=== PATIENT | female | born 1980 | race Caucasian/White ===

== ENCOUNTER 2018-08-04 05:15 | Inpatient (IN) | payer OTHER ==
[~2018-08-04] VITALS: Ht 167.6 cm; Wt 72.7 kg
[2018-08-04] MEDS ORDERED: PREN-99 PO (06:04)
[2018-08-04 06:05] VITALS: Ht 167.6 cm; Wt 72.7 kg
[2018-08-04] MEDS: LACTATED RINGER'S 1,000 ML IV SCH ×2 (06:15→07:35)
[2018-08-04] MEDS ORDERED: METHYLERGONOVINE 0.2 MG INJ IM PRN ×3 (06:30→11:00)
[2018-08-04] MEDS ORDERED: OXYTOCIN 30 UNITS/LR 500 ML IV PRN ×3 (06:30→11:00)
[2018-08-04] MEDS ORDERED: MISOPROSTOL 200 MCG TAB PR PRN ×3 (06:30→11:00)
[2018-08-04] MEDS ORDERED: CEFAZOLIN 2 GM/50 ML (PMX) 50 ML IVPB SCH (06:30)
[2018-08-04] MEDS ORDERED: OXYTOCIN 30 UNITS/LR 500 ML IV SCH ×2 (06:30→09:47)
[2018-08-04] MEDS ORDERED: CARBOPROST 250 MCG INJ IM PRN ×3 (06:30→11:00)
[2018-08-04] MEDS ORDERED: OXYTOCIN 10 UNIT INJ ONE ×2 (07:00→07:56)
--- NOTE | 2018-08-04 07:39 | PREAC ---
Date/Time of Note Date/Time of Note DATE: 08/04/18 TIME: 07:37 Anesthesia Eval and Record Evaluation Time Pre-Procedure Interview DATE: 08/04/18 TIME: 07:37 Age 37 Sex female NPO: 8 hrs Preoperative diagnosis IUP Planned procedure Repeat C/section Past Medical History Past Medical History: Includes Cardio: HTN, Dyslipidemia GI: Obesity Surgery & Anesthesia Issues No known issue Meds Anticoagulation: No Beta Jesus within 24 hr: No Reason Beta Jesus not given: Pt. not on B-Jesus Reported Medications Vit #76/Iron,Carb/FA (Pnv 29-1 Tablet) 1 Each Tablet, 1 EACH PO, TAB 08/04/18 Current Medications Lactated Ringer's 1,000 ml @ 125 mls/hr Q8H IV Last administered on 08/04/18at 07:35; Admin Dose 125 MLS/HR; Start 08/04/18 at 06:07 Cefazolin Sodium/ Dextrose 50 ml @ 100 mls/hr ONCE IVPB ; Start 08/04/18 at 06:30 Oxytocin/Lactated Ringer's 500 ml @ 125 mls/hr POST IV ; Start 08/04/18 at 06:30 Oxytocin/Lactated Ringer's 500 ml @ 0 mls/hr ONCE PRN IV .VAGINAL BLEEDING; Start 08/04/18 at 06:30 Methylergonovine Maleate (Methergine) 0.2 mg ONCE PRN IM .VAGINAL BLEEDING; Start 08/04/18 at 06:30 Carboprost Tromethamine (Hemabate) 250 mcg ONCE PRN IM .VAGINAL BLEEDING; Start 08/04/18 at 06:30 Misoprostol (Cytotec) 1,000 mcg ONCE PRN PA .VAGINAL BLEEDING; Start 08/04/18 at 06:30 Meds reviewed: Yes Allergies Coded Allergies: No Known Allergy (Unverified , 08/04/18) Allergies Reviewed: Yes Labs/Studies Labs Reviewed: Reviewed by anesthesiologist Result Diagram: 08/04/1860408/04/18604 Laboratory Tests 08/04/18 06:05 Blood Bank Test 08/04/18 06:05 Antibody Screen NEGATIVE Blood Type O POSITIVE Rh Immune Globulin Candidate NO test: Positive Studies: ECG Pre-procedure Exam Last vitals BP:142/67, P:78, Spo2:100%, T:99,2 Airway: Adequate mouth opening, Adequate thyromental dist Mallampati: Mallampati II Teeth: Normal Lung: Normal Heart: Normal ASA Physical Status ASA physical status: 2 Emergency: None Planned Anesthetic Neuraxial: Spinal Planned Pain Management Sub-arachniod narcotics, Parenteral pain med Pre-operative Attestations Prior to commencing anesthesia and surgery, the patient was re-evaluated, there was verification of: *The patient's identity *The results of appropriate recent lab work and preoperative vital signs *The above evaluation not changing prior to induction *Anesthetic plan, risk benefits, alternative and complications discussed with patient/family; questions answered; patient/family understands, accepts and wishes to proceed. BECCA POLK MD August 04, 2018 07:39
[2018-08-04] MEDS ORDERED: morphine SULFATE/PF (10 MG/10 ML) INJ ONE ×2 (07:56→08:28)
[2018-08-04] MEDS ORDERED: ONDANSETRON 4 MG INJ ONE (07:56)
[2018-08-04] MEDS ORDERED: NALOXONE (0.4 MG/ML) INJ IV PRN (09:00)
[2018-08-04] MEDS ORDERED: KETOROLAC 30 MG INJ IV PRN (09:00)
[2018-08-04] MEDS ORDERED: morphine 2 MG INJ IV PRN (09:00)
[2018-08-04] MEDS ORDERED: ONDANSETRON 4 MG INJ IV PRN ×2 (09:00→11:00)
[2018-08-04] MEDS ORDERED: DIPHENHYDRAMINE 50 MG INJ IV PRN ×2 (09:00→11:00)
[2018-08-04] MEDS ORDERED: FENTAnyl 50 MCG/ML VIAL ONE (09:10)
--- NOTE | 2018-08-04 09:37 | PAC ---
Date/Time of Note Date/Time of Note DATE: 08/04/18 TIME: 09:34 Post-Anesthesia Notes Post-Anesthesia Note Activity: WNL Respiratory function: WNL Cardiovascular function: WNL Mental status: Baseline Pain reasonably controlled: Yes Hydration appropriate: Yes Nausea/Vomiting absent: Yes Comments BP:118/78, P:64, Spo2:100%, T:98,8 BECCA POLK MD August 04, 2018 09:37
[2018-08-04] MEDS ORDERED: LACTATED RINGER'S 1,000 ML IV SCH (09:47)
[2018-08-04] MEDS ORDERED: METHYLERGONOVINE 0.2 MG TAB PO PRN (10:00)
[2018-08-04] MEDS ORDERED: MAGNESIUM SULFATE 4 GM/100 ML 100 ML IVPB ONE ×3 (10:00→11:00)
[2018-08-04] MEDS ORDERED: HYDROCODONE/APAP (5/325) TAB PO PRN ×3 (10:00→11:00)
[2018-08-04] MEDS ORDERED: LANOLIN HPA 1 PKT TOP PRN ×2 (10:00→11:00)
[2018-08-04] MEDS ORDERED: NA PHOSPHATE/BIPHOS 133 ML ENEMA PR PRN (10:00)
--- NOTE | 2018-08-04 10:05 | SIPON ---
Date/Time of Note Date/Time of Note DATE: 08/04/18 TIME: 10:03 Operative Report Preoperative Diagnosis Term Previous x3 Large umbilical hernia Multiparity Postoperative Diagnosis Same plus extensive adhesions Operation/Procedure Performed Repeat low segment transverse section lysis of adhesions bilateral fimbriectomy. Repair of umbilical hernia Surgeon see signature line office clerk assistant Dr. Olvera Anesthesia: spinal Estimated blood loss: other Transfusion Required none Specimen Placenta and tubes Grafts/Implants none Complications none GLADYS EVANS MD August 04, 2018 10:05
--- NOTE | 2018-08-04 10:47 | LDN ---
Date/Time of Note Date/Time of Note DATE: 08/04/18 TIME: 10:44 Delivery Summary 37 years old female multigravida 1 week postdates admitted for induction of labor Spontaneous vaginal delivery baby boy 9 No lacerations No bleeding Epidural anesthesia Weeks of Gestation 41 weeks Placenta Delivered: Spontaneously Meconium: none Episiotomy: No Sponge & Needle done & correct: Yes All needle counts correct: Yes Any foreign bodies felt in the: No Infant Delivery Information Sex Sex: male Apgars 1 Minute: 9 5 Minute: 9 Suctioning Nose & mouth suctioned at lev: Yes Delee suction performed: No Umbilical Cord Umbilical cord with: 3 Vessels Cord Blood was obtained: Yes Mother & Baby Disposition Disposition Mom & Baby to Maternity; Good: Yes GLADYS EVANS MD August 04, 2018 10:47
[2018-08-04] MEDS: LACTATED RINGER'S 1,000 ML IV* SCH ×3 (10:48→20:41)
[2018-08-04] MEDS ORDERED: SENNA/DOCUSATE NA (8.6MG/50MG) TAB PO PRN (11:00)
[2018-08-04] MEDS ORDERED: DIPHENHYDRAMINE 25 MG CAP PO PRN (11:00)
[2018-08-04] MEDS ORDERED: ACETAMINOPHEN 325 MG TAB PO PRN ×2 (11:00)
[2018-08-04] MEDS ORDERED: DIBUCAINE 1% 30 GM OINT TOP PRN (11:00)
[2018-08-04] MEDS ORDERED: ONDANSETRON 4 MG TAB PO PRN (11:00)
[2018-08-04] MEDS: IBUPROFEN 800 MG TAB PO SCH ×2 (12:00→18:00)
[2018-08-04] MEDS: MAGNESIUM SULFATE 20 GM/500 ML 500 ML IV SCH ×2 (12:29→20:43)
[2018-08-04] MEDS: KETOROLAC 30 MG INJ IV SCH ×2 (12:32→18:36)
[2018-08-04] MEDS ORDERED: IBUPROFEN 800 MG TAB PO SCH (14:00)
--- NOTE | 2018-08-04 14:39 | OPR ---
DATE OF OPERATION: 08/04/2018 PROCEDURE: Repeat low segment transverse section, bilateral fimbriectomy, lysis of extensiv e adhesions, repair of umbilical hernia. SURGEON: Gladys Denise MD SECURITY TEST ENGINEER: Adams Olvera MD ANESTHESIOLOGIST: Jet Lee MD ANESTHESIA: Spinal. DESCRIPTION OF PROCEDURE: The patient was given a spinal anesthesia, placed in the supine position. The abdomen was prepped and draped and a Bronson catheter was placed in the bladder. A transverse inc ision was made suprapubically over the previous old scar of about 10 cm in length. The abdominal cav ity was reached and we found extensive omental adhesions and uterine adhesions to the anterior abdomi nal wall. We started dissecting and clearing the omental adhesions with cutting clamped, cut and tie d with #2-0 Vicryl. After the omental adhesions were lysed, the uterine adhesion to the abdominal wa ll was lysed and the bladder flap was made. The uterus was opened in the segment area and the amniot ic fluid was clear. The cord was around the baby's head and neck and we passed it through the head. We delivered a baby girl, 9. The cord was clamped and cut. The placenta was removed. The ut erus was cleaned out. The cervix was opened with ring forceps and the uterus was closed in 2 layers with 0 PDS looped suture, imbedding the first line of suture. At this time, more adhesions were lyse d and also an ovarian cyst from the left side was also burned, cut and couple of stitches were placed on it. The more extensive lysis of adhesions were done and at this time, the fimbriated end of the tube was clamped at the mesosalpinx and going up almost 3/4 of the tube. This portion of the tube wa s excised and closed with a 2-0 Vicryl [id number] suture. The same thing was done on the other side. The abdominal cavity was cleaned out and we assessed bleeding that was controlled. Three stit ches with #1 Prolene were placed at the level of the umbilical area internally where large umbilical hernia was seen. Three large stitches were placed on the fascia and were done individually interrupt ed. The area of the fascia was tightly closed. The stitches were permanent. The ventral hernia was apparently fixed. The abdominal cavity was closed with a 2-0 Vicryl suture for peritoneum. A piece of Surgicel was left on the area to control the venous bleeding. The fascia was closed with 0 PDS l ooped suture, 2-0 Vicryl for the subcutaneous tissue, 3-0 Monocryl subcuticular to the skin. Dermabo nd and Steri-Strips were applied. The patient tolerated the procedure well and left the OR awake and stable. Sponge counts and instrument counts were correct. Intravenous antibiotics were given for p rophylaxis. Blood loss was about 600 mL and the urine was clear at the end of the procedure. Dictated By: GLADYS FERNANDO/PATRICIA Conf#: [id number] DID#: [id number]
[2018-08-04] MEDS: CEFAZOLIN 2 GM/50 ML (PMX) 50 ML IVPB SCH ×2 (15:04→23:15)
[2018-08-04 17:10] VITALS: BP 122/82; PULSE 62; RESP 18
[2018-08-04 18:10] VITALS: BP 121/88; PULSE 62
[2018-08-04 20:00] VITALS: BP 112/77; PULSE 62; RESP 18
[2018-08-04 21:00] VITALS: BP 115/82; PULSE 64; RESP 18
[2018-08-04] MEDS: SENNA/DOCUSATE NA (8.6MG/50MG) TAB PO SCH (21:00)
[2018-08-04] MEDS: LABETALOL 100 MG TAB PO SCH (21:00)
[2018-08-04 22:00] VITALS: BP 113/71; PULSE 78; RESP 18
[2018-08-04 23:00] VITALS: BP 109/69; PULSE 75; RESP 17
[2018-08-05] VITALS (12 sets, daily range): BP systolic 101–127; BP diastolic 59–82; PULSE 69–91; RESP 17–18
[2018-08-05] MEDS: KETOROLAC 30 MG INJ IV SCH ×2 (00:06→06:36)
[2018-08-05] MEDS: CEFAZOLIN 2 GM/50 ML (PMX) 50 ML IVPB SCH (06:36)
[2018-08-05] MEDS: LABETALOL 100 MG TAB PO SCH ×2 (09:00→21:00)
[2018-08-05] MEDS: SENNA/DOCUSATE NA (8.6MG/50MG) TAB PO SCH ×2 (09:20→21:39)
[2018-08-05] MEDS: IBUPROFEN 800 MG TAB PO SCH ×3 (12:04→23:51)
--- NOTE | 2018-08-05 13:57 | PN ---
Date/Time of Note Date/Time of Note DATE: 08/05/18 TIME: 13:56 Assessment/Plan Lines/Catheters IV Catheter Type (from Nrsg): Peripheral IV Subjective 24 Hr Interval Summary Day 1 post Doing well Ambulating already Incision dry Uterus is contracted Lochia normal Constitutional: no complaints Feeding: advancing diet Pain Control: mild Detailed Summary Eyes: no complaints ENT: no complaints Respiratory: no complaints Cardiovascular: no complaints Gastrointestinal: no complaints Genitourinary: no complaints Musculoskeletal: no complaints Skin: no complaints Neurologic: no complaints Endocrine: no complaints Lymphatic: no complaints Psychological: no complaints, nl mood/affect Immunologic: no complaints Exam/Review of Systems Vital Signs Vitals Vital Signs Date Temp Pulse Resp B/P (MAP) Pulse Ox O2 O2 Flow FiO2 Time Delivery Rate 08/05/18 74 18 109/72 Room Air 09:20 (84) 08/05/18 98.4 98 08:00 Intake and Output 08/04/18 08/04/18 08/05/18 1515:00 23:00 07:00 IntakeIntake Total 2040 ml 400 ml OutputOutput Total 1087 ml 880 ml 1200 ml BalanceBalance 953 ml -480 ml -1200 ml Exam Constitutional: alert, oriented, well developed Psych: no complaints, nl mood/affect Head: normocephalic, atraumatic Eyes: nl conjunctiva, EOMI, nl lids, nl sclera ENMT: nl external ears & nose, nl lips & teeth, nl nasal mucosa & septum, mucosa pink and moist Neck: supple, non-tender Respiratory: clear to auscultation, normal air movement Cardiovascular: regular rate and rhythm, nl pulses Gastrointestinal: soft, nl liver, spleen, non-tender Musculoskeletal: nl extremities to inspection, nl gait and stance Extremities: normal pulses Neurological: BOARD WINDER II-XII intact, nl mental status, nl speech, nl strength Skin: nl turgor, rash or lesions Lymph: nl lymph nodes Results Result Diagram: 08/05/1845 08/05/18 0645 GLADYS EVANS MD Aug 05, 2018 13:57
[2018-08-05] MEDS ORDERED: BISACODYL (EC) 5 MG TAB PO ONE (14:00)
[2018-08-05] MEDS: MAGNESIUM HYDROXIDE 30ML CUP PO PRN (21:39)
[2018-08-06 04:00] VITALS: BP 131/86; PULSE 80; RESP 19
[2018-08-06] MEDS: HYDROCODONE/APAP (5/325) TAB PO PRN ×2 (04:18→23:13)
[2018-08-06] MEDS: IBUPROFEN 800 MG TAB PO SCH ×3 (06:21→17:38)
[2018-08-06 07:50] VITALS: BP 120/70; PULSE 71; RESP 19
[2018-08-06] MEDS: SENNA/DOCUSATE NA (8.6MG/50MG) TAB PO SCH ×2 (08:11→21:20)
[2018-08-06] MEDS: MAGNESIUM HYDROXIDE 30ML CUP PO PRN (08:11)
[2018-08-06] MEDS: LABETALOL 100 MG TAB PO SCH ×2 (09:00→21:29)
[2018-08-06] MEDS ORDERED: VARICELLA VACCINE LIVE/PF 1,350 UNIT/0.5 ML ML SC* ONE (09:00)
[2018-08-06] MEDS ORDERED: DIPHTH/TET/ACEL PERTUSS (ADULT) 0.5 ML VIAL IM* ONE (09:00)
[2018-08-06] MEDS ORDERED: MEASLES,MUMPS,RUBELLA VACCINE INJ SC* ONE (09:00)
[2018-08-06 09:25] VITALS: BP 111/72; PULSE 84; RESP 18
--- NOTE | 2018-08-06 14:22 | QN ---
Documentation Comment POD#2 is stable afebrile tolerates diet No VB +Flatus+Voids VS stable Gen NAD Abd soft NT ND Incision intact Genitalia No blood at perineum --->Discharge plan tomorrow MADDISON FORTUNE M.D. Aug 06, 2018 14:22
[2018-08-06 15:27] VITALS: BP 117/60; PULSE 86; RESP 20
[2018-08-06 20:30] VITALS: BP 121/73; PULSE 83; RESP 18
[2018-08-06 21:25] VITALS: BP 122/89; PULSE 92
[2018-08-07] MEDS: IBUPROFEN 800 MG TAB PO SCH ×3 (00:06→12:05)
[2018-08-07 04:30] VITALS: BP 106/68; PULSE 72; RESP 18
--- NOTE | 2018-08-07 06:52 | PREOPHP ---
DATE OF ADMISSION: 08/04/2018 PATIENT NAME: JUWAN MENESES HISTORY OF PRESENT ILLNESS: This is a ____-gxjl-xnr female, 4, para 3, with 3 previous dread jordan sections, last period of 11/07/2017 with a due date of 08/11/2018 by early ultrasounds and by per inatologist visit. The patient had decided to also had a tubal ligation for which a repeat section and tubal ligation will be performed with removal of both tubes. She has no medical antecede nts, otherwise, no major medical, surgical antecedents. ALLERGIES: SHE HAS NO ALLERGIES. SOCIAL HISTORY: She does not drink or smoke. FAMILY HISTORY: Also noncontributory. PHYSICAL EXAMINATION: VITAL SIGNS: The patient is 5 feet 6 inches. She weighs 142 as normal basis and she had gained 22 p ounds so far. The patient is 5 feet 6 inches with a weight of 164 and normal blood pressure, respira tions 16 and normal vital signs. HEAD AND NECK: Normal. CHEST: Clear. HEART: Normal sinus rhythm with a small systolic murmur. This was also evaluated with an echocardio gram that was dismissed as near normal. ABDOMEN: The abdomen was soft. Uterus at term with a cephalic presentation and normal heart t ones and normal position of the baby. EXTREMITIES: Normal with normal pulses, no edema. PELVIC: With a closed, long cervix, not in labor. She had requested a tubal ligation due to multipa rity and she had signed the papers long time ago. PLAN: She has been advised for a repeat section and bilateral salpingectomy. She has been advised of the possible risks and possible complications of the procedure with her alternatives and o ptions. Written information was provided. She had no more questions and agreed to go ahead with the procedure with full understanding and no more questions. Dictated By: GLADYS FERNANDO/PATRICIA Conf#: [id number] DID#: [id number]
[2018-08-07 07:45] VITALS: BP 117/80; PULSE 73; RESP 19
[2018-08-07] MEDS ORDERED: DIPHTH/TET/ACEL PERTUSS (ADULT) 0.5 ML VIAL IM* ONE (09:00)
[2018-08-07] MEDS ORDERED: MEASLES,MUMPS,RUBELLA VACCINE INJ SC* ONE (09:00)
[2018-08-07 09:44] VITALS: BP 129/77; PULSE 88; RESP 19
[2018-08-07] MEDS: SENNA/DOCUSATE NA (8.6MG/50MG) TAB PO SCH (09:44)
[2018-08-07] MEDS: LABETALOL 100 MG TAB PO SCH (09:44)
--- NOTE | 2018-08-07 11:06 | PD.PPDC ---
LASTING MACHINE OPERATOR BED Discharge Instruction Condition [id number] Patient Condition: Amjot5j Good Diet Efiho1Ox Diet: Oioid4a Resume Regular Diet Activity/Restrictions Jthef7Ip Activity: Mabnb8i Normal Activity May Shower Jxcez2Zi Restrictions: Kckdb8v No Exercising No Lifting No Driving No Sexual Activity Nothing in the Vagina No [place] No Tampons, douche Wound/Drain Care Instructions Bsivo8Zs Wound/Drain Care Instructions: Zpltb8n Wash with soap and water Keep clean and dry Follow-up Follow-up with Physician: 1, Week/Weeks Return to clinic for Usoph4Tq GAMEMASTER Instructions: Gwweu2s Fever greater than 101 Chills Worsening abdominal pain Excessive Vaginal Bleeding More than 2 pads per hour Unable to tolerate diet [id number] OB Instructions: Ajavy5u Breast Tenderness Depression Blurried Vision Headache Pqcat9Wn Surgical Instructions: Lfiuo5d Incisional Drainage Incisional Redness GLADYS EVANS MD Aug 07, 2018 11:06
--- NOTE | 2018-08-07 11:13 | DS ---
Date/Time of Note Date/Time of Note DATE: 08/07/18 TIME: 11:07 Discharge Summary Admission/Discharge Info Admit Date/Time August 04, 2018 at 05:15 Discharge Date/Time August 07, 2018 Discharge Diagnosis Repeat section and tubal ligation. Mild hypertension Patient Condition: Good Procedures Repeat section and tubal ligation. Umbilical hernia repair Hx of Present Illness 37 years old female multigravida Admitted for a repeat and tubal ligation Patient developed slight hyper and got controlled with diet only. at the time of the umbilical hernia repair was done Hospital Course The patient did very well after surgery, she was ambulatory, her laboratory t esting were with slight anemia which she was not symptomatic for. She is tolerating diet voiding well passing gases with bowel movement. Incision healing well. Lochia normal with no heavy bleeding. Patient is discharged home in stable and good conditions to see him in the office in a week Instructions were given to what to do in case of an emergency and what would she consider an emergency. Stable to go home. Pain is controlled with p.o. meds Home Meds Reported Medications Vit #76/Iron,Carb/FA (Pnv 29-1 Tablet) 1 Each Tablet, 1 EACH PO, TAB 08/04/18 Primary Care Provider Not On Staff Doctor Time spent on discharge: < 30 minutes GLADYS EVANS MD Aug 07, 2018 11:13
--- NOTE | 2018-08-07 17:34 | RADRPT ---
Vent Rate: 52 bpm RR Interval: 1148 msec OK Interval: 139 msec QRS Duration: 88 msec QT Interval: 465 msec QTC Interval: 434 msec P-R-T Independence: 43 - 37 - 55 degrees sinus bradycardic Electronically Signed By: Jony Colin
--- NOTE | 2018-08-08 15:38 | DELSUM ---
Delivery Summary A-C Datetime Report Generated by CPN: 08/08/2018 15:38 DELIVERY PERSONNEL Compressor Service Technician: Orel, Trisha MATERNAL INFORMATION Delivery Anesthesia: Spinal Medications in Delivery: SEE ANESTHESIA RECORDS Delivery QBL (ml): 600 Placenta Cultured: No Maternal Complications: None LABOR SUMMARY EDC: 08/10/2018 00:00 No. Babies in Womb: 1 Attempted: No Labor Anesthesia: None LABOR INFORMATION Reason for Induction: Not Applicable Oxytocin: N/A Group B Beta Strep: Negative Antibiotics # of Doses: ANCEF 2 GM X 1 Antibiotics Time of Last Dose: 08/04/2018 07:52 Steroids Given: None Reason Steroids Not Administered: Not Applicable MEMBRANES Membranes Rupture Method: Artificial Rupture of Membranes: 08/04/2018 08:41 Length of Rupture (hr): 0.02 Amniotic Fluid Color: Clear Amniotic Fluid Amount: Moderate Amniotic Fluid Odor: None STAGES OF LABOR Stage 3 hr: 0 Stage 3 min: 1 CSECTION DELIVERY Primary Indication: Repeat Elective Secondary Indication: N/A CSection Urgency: Elective CSection Incidence: Repeat Labor: No Labor Elective: Elective CSection Incision: Lower Uterine Transverse Sterilization Procedure: Johny BABY A INFORMATION Infant Delivery Date/Time: 08/04/2018 08:42 Method of Delivery: Born in Route : No : N/A Forceps: N/A Vacuum Extraction: N/A Shoulder Dystocia : No SHOULDER DYSTOCIA BABY A Delivery Date/Time: 08/04/2018 08:42 PRESENTATION/POSITION BABY A Presentation: Cephalic Cephalic Presentation: Vertex Vertex Position: Left Occipital Anterior Breech Presentation: N/A PLACENTA INFORMATION BABY A Placenta Delivery Time : 08/04/2018 08:43 Placenta Method of Delivery: Manual Removal Placenta Status: Delivered SCORES BABY A Heart Rate 1 min: >100 bpm Resp Effort 1 min: Good Cry Reflex Irritability 1 min: Cough/Sneeze/Pulls Away Muscle Tone 1 min: Active Motion Color 1 min: Body Progress, Extremit Blue Resuscitation Effort 1 min: Tactile Stimulation SCORE 1 MIN: 9 Heart Rate 5 min: >100 bpm Resp Effort 5 min: Good Cry Reflex Irritability 5 min: Cough/Sneeze/Pulls Away Muscle Tone 5 min: Active Motion Color 5 min: Body Progress, Extremit Blue Resuscitation Effort 5 min: Tactile Stimulation SCORE 5 MIN: 9 INFANT INFORMATION BABY A Gestational Age at Delivery: 39.1 Gestational Status: Full Term- 39- 40.6 Weeks Outcome : Liveborn Infant Condition : Stable Infant Sex: Female IDENTIFICATION/MEDS BABY A ID Band Number: [id number] ID Band Location: Right Leg; Left Arm Sensor Applied: Yes Sensor Number: [id number] Sensor Location : Cord Clamp Vitamin K Given : Not Given Erythromycin Given: Not Given WEIGHT/LENGTH BABY A Infant Birthweight (gm): 2995 Weight (lb): 6 Weight (oz): 10 Length (in): 19.50 Infant Length (cm): 49.53 CORD INFORMATION BABY A No. Cord Vessels: 3 Nuchal Cord : N/A Cord Blood Taken: Yes Suction: Mouth; Nose ASSESSMENT BABY A Infant Complications: None Physical Findings at Delivery: Within Normal Limits Infant Respirations: Appears Normal Marine Diver/ALS Called : No Infant Care By: YIFAN Castro Transferred To: Remains with Mother
== END 2018-08-07 15:38 | disposition home or self-care (01) | DRG 785 ==
LOC: L-D 05:15 → PP1 17:09
PROVIDERS: ADMIT Obstetrics & Gynecology; ATTEND Obstetrics & Gynecology
PROC: 0UB70ZZ Excision of Bilateral Fallopian Tubes, Open Approach (ICD-10-PCS; 2018-08-04)
PROC: 0UN90ZZ Release Uterus, Open Approach (ICD-10-PCS; 2018-08-04)
PROC: 0WQF0ZZ Repair Abdominal Wall, Open Approach (ICD-10-PCS; 2018-08-04)
PROC: 0UB10ZZ Excision of Left Ovary, Open Approach (ICD-10-PCS; 2018-08-04)
PROC: 0U510ZZ Destruction of Left Ovary, Open Approach (ICD-10-PCS; 2018-08-04)
PROC: 10D00Z1 Extraction of Products of Conception, Low, Open Approach (ICD-10-PCS; principal; 2018-08-04 07:30)
PROC: 3E0234Z Introduction of Serum, Toxoid and Vaccine into Muscle, Percutaneous Approach (ICD-10-PCS; 2018-08-07)
DX: O34.211 Maternal care for low transverse scar from previous cesarean delivery (principal); O99.89 Other specified diseases and conditions complicating pregnancy, childbirth and the puerperium; N73.6 Female pelvic peritoneal adhesions (postinfective); K42.9 Umbilical hernia without obstruction or gangrene; N83.202 Unspecified ovarian cyst, left side; O34.83 Maternal care for other abnormalities of pelvic organs, third trimester; O90.81 Anemia of the puerperium; O16.4 Unspecified maternal hypertension, complicating childbirth; O75.89 Other specified complications of labor and delivery; Z3A.39 39 weeks gestation of pregnancy; Z37.0 Single live birth; Z30.2 Encounter for sterilization; Z23 Encounter for immunization
CPT/HCPCS: 80053; 81001; 83735; 84560; 85025; 85384; 85610; 85730; 86592; 86850; 86900; 86901; 87340; 88302; 90715; 90716; 93005; 99464; J0690; J1885; J2274; J2405; J2590; J3010; J3475; J7120